=== PATIENT | female | born 1975 | race Two or more races ===

== ENCOUNTER → 2024-02-17 | Emergency (ER) | payer OTHER ==
[~2024-02-17] VITALS: Ht 152.4 cm; Wt 68.0 kg
[2024-02-17 12:49] VITALS: BP 100/67; O2SAT 100
== END | disposition left against medical advice (07) ==
LOC: ER 12:03
DX: Z53.21 Procedure and treatment not carried out due to patient leaving prior to being seen by health care provider (principal)